=== PATIENT | female | born 1965 | race Two or more races ===

== ENCOUNTER 2020-07-14 19:37 | Emergency (ER) | payer MEDICAID ==
[~2020-07-14] VITALS: Ht 170.2 cm; Wt 69.0 kg
[2020-07-14] MEDS ORDERED: SODIUM CHLORIDE 0.9% 1,000 ML IV ONE (20:10)
[2020-07-14] MEDS ORDERED: LORAZEPAM 2MG/ML CPJ IV ONE (20:15)
[2020-07-14 20:23] LABS: BASOPHILS % 0.4 % (0.0-2.0); EOSINOPHILS % 0.8 % (0.0-5.0); HEMATOCRIT. 38.4 % (36.0-48.0); LYMPHOCYTES % 33.8 % (20.0-50.0); MEAN CORPUSCULAR VOLUME 91.4 fL (81.0-99.0); MEAN PLATELET VOLUME 7.7 fl (7.4-10.4); MONOCYTES % 5.7 % (2.0-8.0); NEUTROPHILS % 59.3 % (40.0-76.0); PLATELET 266 x1000/uL (130-400); RED BLOOD CELL COUNT 4.21 mill/uL (4.2-5.4); RED CELL DISTRIBUTION WIDTH 14.2 % (11.6-14.6)
[2020-07-14 20:28] LABS: CHLORIDE 105 mEq/L (98-107)
[2020-07-14 23:05] VITALS: BP 108/68
== END 2020-07-14 23:48 | disposition home or self-care (01) ==
LOC: ER 19:37
DX: F41.9 Anxiety disorder, unspecified (principal); E86.0 Dehydration
CPT/HCPCS: 36415; 71045; 80053; 84484; 85025; 93005; 96361; 96374; 99285; J2060; J7030

== ENCOUNTER 2023-10-03 17:44 | Emergency (ER) | payer MEDICAID ==
[~2023-10-03] VITALS: Ht 162.6 cm; Wt 75.0 kg
[2023-10-03 17:50] VITALS: BP 135/70; PULSE 86; RESP 18; TEMP 98.6; O2SAT 100
[2023-10-03] MEDS ORDERED: P50 MT (21:35)
[2023-10-03] MEDS ORDERED: EPIN0.3P3 IM (21:35)
== END 2023-10-03 21:53 | disposition home or self-care (01) ==
LOC: ER 17:44
DX: T78.40XA Allergy, unspecified, initial encounter (principal); F41.9 Anxiety disorder, unspecified; X58.XXXA Exposure to other specified factors, initial encounter
CPT/HCPCS: 99283